=== PATIENT | female | born 1995 | race Caucasian/White ===

== ENCOUNTER 2016-09-12 08:09 | Emergency (ER) | payer OTHER ==
[~2016-09-12] VITALS: Ht 170.2 cm; Wt 81.8 kg
[2016-09-12 08:14] VITALS: BP 125/90; PULSE 87; RESP 18; O2SAT 99
--- NOTE | 2016-09-12 10:14 | ED.REPORT ---
HPI-Abd Pain F Under 38 Date of Service Sep 12, 2016 ED Provider: Nabil Munoz MD This is a 21 year old female with a history of endometriosis presenting to the emergency department due to lower abdominal pain that began 2 hours ago. Described as abdominal cramping with radiation down bilateral legs. Associated with nausea and vomiting. Denies dysuria, bowel or bladder changes, back pain, or numbness or tingling in extremities. Patient is menstruating at this time and has experienced similar episodes with menses previously. She is not using contraceptives. Nursing Notes Stated Complaint: CRAMPS/VOMITING/PAIN Chief Complaint: Female Abdominal Pain Nursing Notes Reviewed: Yes Allergies: Coded Allergies: No Known Allergies (Unverified Allergy, Unknown, 09/12/16) Scheduled PRN Ibuprofen (Ibuprofen) 800 Mg Tablet 800 MG PO TID PRN PRN For Pain Ondansetron ODT (Zofran ODT) 4 Mg Tablet 4 MG PO Q4H PRN PRN For Nausea General Time Seen by MD: 08:46 Chief Complaint Abdominal pain Hx Obtained From: Patient Arrived By: Walk-in Sudden in Onset?: Yes Onset Occurred: 1 - 4 hours ago Symptom Duration: Since onset Location: : Abdomen lower Severity: Current: Moderate Pertinent Negative: Pt denies other symptoms Recent Healthcare: No recent doctor visit, No recent hospitalization Similar Sx Previous: No Past Medical History Past Medical History Endometriosis Ambulatory Status Independent Review of Systems Constitutional: Denies: Chills, Fever Respiratory: Denies: Non-productive cough, Shortness of breath GI: Reports: Abdominal pain, Nausea, Vomiting, Denies: Constipation, Diarrhea Female: Denies: Dysuria Musculoskeletal: Denies: Back pain Complete sys rev & neg: except as marked. Physical Exam Initial Vital Signs Vital Signs (First) Date Time Temp Pulse Resp B/P Pulse Ox O2 Delivery O2 Flow Rate FiO2 09/12/16 08:14 36.2 87 18 125/90 99 Initial VS: Reviewed Head / Eyes: Atraumatic, Normocephalic, PERRL ENT: Mucous membranes moist, Conjunctiva normal, No scleral icterus Neck: Supple, Non-tender, Full range of motion Extremities: Vascular intact, Neuro intact, No swelling, No tenderness Skin: Warm, Dry, No cyanosis Neurologic: Alert, Oriented, Nonfocal Psychiatric: Mood/affect normal, Behavior normal, Normal thought content General/Constitutional: Awake, Alert Respiratory / Chest: Breath sounds NL, Breath sounds = bilat, No respiratory distress, No rales, No rhonchi, No wheezing Cardiovascular: Heart rate NL, Regular rhythm, Heart sounds NL, Peripheral circulation NL Abdomen: Soft, Non-tender, McBurney's non-tender, No guarding, No rebound, BS normoactive Back: Inspection NL, Non-tender, No CVA tenderness Interpretation & Diagnostics Lab Results Interpretation Test 09/12/16 08:30 09/12/16 09:28 Hold Purple Top Tube Received (Received) Hold Blue Top Tube Received (Received) Hold [place] Top Tube Received (Received) Hold Urine Received (Received) Re-Eval/Medical Decision Med Decision/Clinical Course Med Decision/Clinical Course: 21-year-old female presenting complaining of painful menstrual cramps. The time I saw her her abdominal pain and resolved that she had received some Toradol ordered by another physician. She did not want to wait for labs and requested to go home. Discharged home with return precautions. Re-Evaluation/Progress : Time of Eval: 10:20 Re-Evaluation/Progress Note: Fells better, would like to go home. Counseled Regarding: Diagnosis, Lab results, Need for follow-up, When/why to return to ED Discharge & Departure Primary Impression: Abdominal pain Abdominal location: generalized Qualified Code: R10.84 - Generalized abdominal pain Disposition: Home Discharge Condition All VS Reviewed: Yes Condition: Stable Patient Instructions: Acute Abdominal Pain (ED) Additional Instructions: Thank you for seeking care in the emergency department today. Your workup was reassuring. Follow up with your [employer] as scheduled. Return to the emergency department with any new or worsening symptoms. Referrals: NOPCP (PCP) Scribe Attestation Portions of this note were transcribed by Nelli Benitez. I, Dr. Munoz personally performed the history, physical exam and medical decision-making; I reviewed and confirmed the accuracy of the information in the transcribed note. Signed by Chloe Taylor, 09/12/2016 at 18:00. Nabil Munoz MD Sep 12, 2016 10:14 NELLI BENITEZ Sep 12, 2016 10:18
[2016-09-12] MEDS ORDERED: ONDA4TAB9 PO (10:21)
[2016-09-12] MEDS ORDERED: IBUP800T28 PO (10:21)
[2016-09-12 10:35] VITALS: BP 100/64; PULSE 74; RESP 16; O2SAT 99
== END 2016-09-12 10:35 | disposition home or self-care (01) ==
LOC: SED 08:09
DX: R10.84 Generalized abdominal pain (principal); R11.2 Nausea with vomiting, unspecified; M54.31 Sciatica, right side; M54.32 Sciatica, left side; N80.9 Endometriosis, unspecified
CPT/HCPCS: 81025; 96372; 99284; J1885